=== PATIENT | male | born 1975 | race Two or more races ===

== ENCOUNTER 2022-12-09 07:58 | Outpatient (CLI) | payer OTHER | END 2022-12-09 08:28 | disposition home or self-care (01) | LOC: SONOGRAMA 07:58 | PROVIDERS: ATTEND General Practice | DX: R19.5 Other fecal abnormalities (principal); R97.20 Elevated prostate specific antigen [PSA]; R10.9 Unspecified abdominal pain ==

== ENCOUNTER 2023-08-10 07:40 | Outpatient (CLI) | payer OTHER | END 2023-08-10 07:50 | disposition home or self-care (01) | LOC: SONOGRAMA 07:40 | PROVIDERS: ATTEND Specialist | DX: R19.5 Other fecal abnormalities (principal); E78.2 Mixed hyperlipidemia; E80.7 Disorder of bilirubin metabolism, unspecified ==